=== PATIENT | female | born 1950 | race Caucasian/White ===

== ENCOUNTER 2018-02-02 05:54 | Inpatient (IN) ==
[2018-01-31 13:08] LABS: Basophils # 0.1 10*3/uL (0.0-0.2); Eosinophils # 0.1 10*3/uL (0.0-0.87); Hematocrit 32.9 VOL% (35.7-47.0); Hemoglobin 9.9 GM/DL (12.0-16.0); Immature Granulocytes % 0.2 %; Immature Granulocytes Absolute 0.01 #; Mean Corpuscular HGB Conc 30.1 GM/DL (32-36); Mean Corpuscular Hemoglobin 23 PG (27-34); Mean Corpuscular Volume 75.1 FL (87-102); Mean Platelet Volume 9.2 FL (9.6-12.0); Monocytes # 0.5 10*3/uL (0.11-0.8); Monocytes % 9.2 % (1.7-12.7); Neutrophils # 4.1 10*3/uL (1.4-7.4); Neutrophils % 71.6 % (38.7-73.9); Platelet Count 439 T/CUMM (130-400); Red Blood Count 4.38 MC/CUMM (3.8-5.5); Red Cell Distribution Width 17.6 % (9.3-17.3); White Blood Count 5.8 T/CUMM (4-12)
[2018-01-31 13:47] LABS: Albumin 3.5 G/DL (3.4-5.0); Bilirubin,Total 0.4 MG/DL (0.2-1.0); Osmolality,Calculated 276.7 MOS/KG (273-304); Potassium 4.2 MMOL/L (3.5-5.1); Total Protein 7.7 G/DL (6.4-8.3)
[2018-02-02] MEDS ORDERED: FAMOTIDINE 20 MG TABLET PO ONE (06:00)
[2018-02-02] MEDS ORDERED: ERTAPENEM 1,000 MG VIAL ONE (06:00)
[2018-02-02] MEDS ORDERED: FAMOTIDINE 20 MG TABLET ONE (06:00)
[2018-02-02] MEDS ORDERED: DIAZEPAM 5 MG TABLET ONE (06:00)
[2018-02-02] MEDS ORDERED: DIAZEPAM 5 MG TABLET PO ONE (06:00)
[2018-02-02] MEDS ORDERED: LACTATED RINGERS 1,000 ML IV SCH (06:30)
[2018-02-02] MEDS ORDERED: ERTAPENEM 1,000 MG in SODIUM CHLORIDE 0.9% 100 ML IV ONE (06:30)
[2018-02-02] MEDS ORDERED: ALVIMOPAN 12 MG CAPSULE PO ONE (06:30)
[2018-02-02] MEDS ORDERED: TISSUE ADHESIVE 1 EACH APPLICATOR TOP ONE (07:41)
[2018-02-02] MEDS ORDERED: SUGAMMADEX 200 MG/2 ML VIAL IV ONE (09:33)
[2018-02-02] MEDS ORDERED: PROPOFOL 200 MG/20 ML VIAL IV ONE (09:48)
[2018-02-02] MEDS ORDERED: MEPERIDINE 25 MG/1 ML VIAL IV PRN (09:48)
[2018-02-02] MEDS ORDERED: MORPHINE 10 MG/1 ML VIAL IV PRN (09:48)
[2018-02-02] MEDS ORDERED: DESFLURANE 1 UNIT/15 MINUTE INH ONE (09:48)
[2018-02-02] MEDS ORDERED: ONDANSETRON 4 MG/2 ML VIAL IV PRN (09:48)
[2018-02-02] MEDS ORDERED: DEXAMETHASONE 10 MG/1 ML VIAL ONE (09:49)
[2018-02-02] MEDS ORDERED: SUFentanil 50 MCG/ML AMP ONE (09:49)
[2018-02-02] MEDS ORDERED: PHENYLEPHRINE 10 MG/1 ML VIAL IV ONE (09:50)
[2018-02-02] MEDS ORDERED: KETOROLAC 30 MG/1 ML VIAL ONE (09:50)
[2018-02-02] MEDS ORDERED: ACETAMINOPHEN 1,000 MG/100 ML VIAL IV ONE (09:50)
[2018-02-02] MEDS ORDERED: ROCURONIUM 100 MG/10 ML VIAL IV ONE (09:50)
[2018-02-02] MEDS ORDERED: NEOSTIGMINE 10 MG/10 ML VIAL ONE (09:51)
[2018-02-02] MEDS ORDERED: LACTATED RINGERS 1,000 ML IV ONE (09:51)
[2018-02-02] MEDS ORDERED: SODIUM CHLORIDE 0.9% 250 ML IV ONE (09:51)
[2018-02-02] MEDS ORDERED: SODIUM CHLORIDE 0.9% 100 ML IV ONE (09:51)
[2018-02-02] MEDS ORDERED: ONDANSETRON 4 MG/2 ML VIAL ONE (10:14)
[2018-02-02] MEDS ORDERED: MEPERIDINE 25 MG/1 ML VIAL ONE (10:14)
[2018-02-02] MEDS ORDERED: HYDROmorphone 2 MG/1 ML VIAL IV PRN (10:51)
[2018-02-02] MEDS ORDERED: PROMETHAZINE 25 MG/1 ML VIAL IM PRN (10:51)
[2018-02-02 11:26] LABS: Basophils % 0.4 % (0.0-0.8); Hematocrit 31.9 VOL% (35.7-47.0); Hemoglobin 9.4 GM/DL (12.0-16.0); Immature Granulocytes % 0.5 %; Immature Granulocytes Absolute 0.06 #; Lymphocytes # 0.6 10*3/uL (1.4-4.0); Lymphocytes % 4.8 % (21.3-54.2); Mean Corpuscular HGB Conc 29.5 GM/DL (32-36); Mean Corpuscular Hemoglobin 22 PG (27-34); Mean Corpuscular Volume 75.8 FL (87-102); Mean Platelet Volume 10.1 FL (9.6-12.0); Monocytes # 0.2 10*3/uL (0.11-0.8); Monocytes % 1.6 % (1.7-12.7); Neutrophils # 10.6 10*3/uL (1.4-7.4); Neutrophils % 92.7 % (38.7-73.9); Platelet Count 400 T/CUMM (130-400); Red Blood Count 4.21 MC/CUMM (3.8-5.5); Red Cell Distribution Width 17.5 % (9.3-17.3); White Blood Count 11.4 T/CUMM (4-12)
[2018-02-02 11:39] LABS: Band Neutrophils 2 % (0-10); Lymphocytes 4 % (20-55); Segmented Neutrophils 93 % (50-85); Total Cells Counted 100
[2018-02-02 11:40] LABS: Hypochromasia 1+; Microcytosis 1+; Platelet Estimate Increased
[2018-02-02] MEDS: KETOROLAC 15 MG/1 ML VIAL IV SCH ×3 (11:40→23:01)
[2018-02-02 11:42] LABS: Osmolality,Calculated 277.8 MOS/KG (273-304); Potassium 4.2 MMOL/L (3.5-5.1)
[2018-02-02] MEDS: LACTATED RINGERS 1,000 ML IV SCH ×2 (15:32→22:17)
[2018-02-02] MEDS: ONDANSETRON 4 MG/2 ML VIAL IV PRN (20:47)
[2018-02-02] MEDS: ALVIMOPAN 12 MG CAPSULE PO SCH (21:22)
[2018-02-03] MEDS: LACTATED RINGERS 1,000 ML IV SCH ×2 (03:49→07:46)
[2018-02-03] MEDS: ENOXAPARIN 40 MG/0.4 ML SYRINGE SUBCUT SCH (04:15)
[2018-02-03] MEDS: ONDANSETRON 4 MG/2 ML VIAL IV PRN (04:30)
[2018-02-03] MEDS: KETOROLAC 15 MG/1 ML VIAL IV SCH ×3 (04:57→17:49)
[2018-02-03 05:45] LABS: Basophils % 0.1 % (0.0-0.8); Hematocrit 27.8 VOL% (35.7-47.0); Hemoglobin 8.3 GM/DL (12.0-16.0); Immature Granulocytes % 0.8 %; Immature Granulocytes Absolute 0.17 #; Lymphocytes # 0.9 10*3/uL (1.4-4.0); Lymphocytes % 4.1 % (21.3-54.2); Mean Corpuscular HGB Conc 29.9 GM/DL (32-36); Mean Corpuscular Hemoglobin 22 PG (27-34); Mean Corpuscular Volume 74.5 FL (87-102); Mean Platelet Volume 10.1 FL (9.6-12.0); Monocytes # 0.9 10*3/uL (0.11-0.8); Monocytes % 4.3 % (1.7-12.7); Neutrophils # 19.4 10*3/uL (1.4-7.4); Neutrophils % 90.7 % (38.7-73.9); Platelet Count 348 T/CUMM (130-400); Red Blood Count 3.73 MC/CUMM (3.8-5.5); Red Cell Distribution Width 17.5 % (9.3-17.3); White Blood Count 21.4 T/CUMM (4-12)
[2018-02-03 06:20] LABS: Calcium 8.7 MG/DL (8.5-10.1); Osmolality,Calculated 279.4 MOS/KG (273-304); Potassium 4.3 MMOL/L (3.5-5.1)
[2018-02-03 07:30] LABS: Band Neutrophils 1 % (0-10); Hypochromasia 1+; Lymphocytes 5 % (20-55); Macrocytosis 1+; Platelet Estimate Adequate; Segmented Neutrophils 92 % (50-85); Total Cells Counted 100
[2018-02-03] MEDS ORDERED: MORPHINE 4 MG/1 ML VIAL IV PRN (09:21)
[2018-02-03] MEDS ORDERED: MORPHINE 4 MG/1 ML VIAL IV SCH (09:30)
[2018-02-03] MEDS: MULTIVITAMIN (CENTRUM) TABLET PO SCH (10:01)
[2018-02-03] MEDS: ALVIMOPAN 12 MG CAPSULE PO SCH (10:01)
[2018-02-03] MEDS: DEXT 5% NACL 0.45% KCL 40 MEQ 40 MEQ/1,000 ML BAG IV SCH ×2 (10:02→22:35)
[2018-02-03 11:46] LABS: Basophils % 0.2 % (0.0-0.8); Hematocrit 26.5 VOL% (35.7-47.0); Hemoglobin 7.9 GM/DL (12.0-16.0); Immature Granulocytes % 0.6 %; Immature Granulocytes Absolute 0.11 #; Lymphocytes # 0.8 10*3/uL (1.4-4.0); Lymphocytes % 4.8 % (21.3-54.2); Mean Corpuscular HGB Conc 29.8 GM/DL (32-36); Mean Corpuscular Hemoglobin 22 PG (27-34); Mean Corpuscular Volume 75.1 FL (87-102); Mean Platelet Volume 9.4 FL (9.6-12.0); Monocytes # 0.7 10*3/uL (0.11-0.8); Monocytes % 4.1 % (1.7-12.7); Neutrophils # 15.9 10*3/uL (1.4-7.4); Neutrophils % 90.3 % (38.7-73.9); Platelet Count 291 T/CUMM (130-400); Red Blood Count 3.53 MC/CUMM (3.8-5.5); Red Cell Distribution Width 17.5 % (9.3-17.3); White Blood Count 17.6 T/CUMM (4-12)
[2018-02-03 12:05] LABS: Hypochromasia 2+; Microcytosis 1+; Polychromasia Slight; Target Cells Slight
[2018-02-04] MEDS: KETOROLAC 15 MG/1 ML VIAL IV SCH ×3 (00:05→11:30)
[2018-02-04] MEDS: ENOXAPARIN 40 MG/0.4 ML SYRINGE SUBCUT SCH (03:30)
[2018-02-04] MEDS: DEXT 5% NACL 0.45% KCL 40 MEQ 40 MEQ/1,000 ML BAG IV SCH ×3 (03:31→09:03)
[2018-02-04 04:53] LABS: Basophils % 0.2 % (0.0-0.8); Eosinophils % 0.1 % (0.00-10.9); Hemoglobin 7.7 GM/DL (12.0-16.0); Immature Granulocytes % 0.5 %; Immature Granulocytes Absolute 0.08 #; Lymphocytes # 0.8 10*3/uL (1.4-4.0); Lymphocytes % 5.2 % (21.3-54.2); Mean Corpuscular HGB Conc 28.5 GM/DL (32-36); Mean Corpuscular Hemoglobin 22 PG (27-34); Mean Corpuscular Volume 76.1 FL (87-102); Mean Platelet Volume 10.2 FL (9.6-12.0); Monocytes # 0.8 10*3/uL (0.11-0.8); Monocytes % 5.3 % (1.7-12.7); Neutrophils # 13.6 10*3/uL (1.4-7.4); Neutrophils % 88.7 % (38.7-73.9); Platelet Count 321 T/CUMM (130-400); Red Blood Count 3.55 MC/CUMM (3.8-5.5); Red Cell Distribution Width 17.7 % (9.3-17.3); White Blood Count 15.3 T/CUMM (4-12)
[2018-02-04 05:25] LABS: Calcium 8.4 MG/DL (8.5-10.1); Osmolality,Calculated 278.4 MOS/KG (273-304); Potassium 4.7 MMOL/L (3.5-5.1)
[2018-02-04 05:42] LABS: Anisocytosis 1+; Hypochromasia 1+; Microcytosis 1+; Ovalocytes Slight; Platelet Estimate Normal
[2018-02-04] MEDS: MULTIVITAMIN (CENTRUM) TABLET PO SCH (08:24)
[2018-02-04 11:53] VITALS: BP 134/79
== END 2018-02-04 11:52 | disposition home or self-care (01) | DRG 331 ==
LOC: N.OR 05:54 → N.SDSINP 05:57 → N.OR 06:11 → N.SDSINP 06:12 → N.3E 10:50
PROVIDERS: ADMIT Surgery; ATTEND Surgery